=== PATIENT | male | born 1960 | race Caucasian/White ===

== ENCOUNTER 2023-07-11 14:46 | Outpatient (AMB) | payer BC, SELFPAY ==
--- NOTE | 2023-07-11 14:49 | A.OFFPC_ITS ---
Vital Signs 07/11/23 14:50 Height 5 ft 7 in Weight 178 lb 8 oz BMI 28.0 BP 140/70 H Blood Pressure Location Lt brachial Position Sitting Pulse 97 Pulse Source Pulse Oximeter Pulse Oximetry (%) 97 Oxygen Delivery Method Room Air Intake Visit Reasons: follow up HTN Allergies No Known Allergies Allergy (Verified 07/11/23 17:46) Medication List - Last Reconciled 07/11/23 by TROY NavarroP- amlodipine 5 mg PO DAILY atorvastatin 10 mg PO BEDTIME losartan 50 mg PO DAILY 90 days sildenafil 100 mg PO DAILY PRN 14 days Tobacco use date assessed: 07/11/23 Dental Screening Dental Screen Date: 07/11/23 Did you have a dental visit in the last 12 months?: Yes Did you have a dental problem in the last 6 months where you did not have access to dental care?: No Was dental information given to patient?: Patient has dentist HPI follow up HTN HPI Details HTN: Blood pressure is managed with amlodipine 5mg and losartan 50mg. Encouraged pt to monitor his blood pressure at home. Denies chest pain, shortness of breath, headache, dizziness, and blurred vision. Pt reports being under a lot of stress. His boss recently and he has taken on a larger workload. Denies any SI and HI. Encouraged pt to have his labs drawn. [facility] Social History Housing: [facility] Patient Tobacco Use Status: Former Tobacco user Quit Date: quit 5 years ago e-Cigarette/Vaping Use: Never Used Second Hand Smoke Exposure: No service: No Current occupational status: employed Current occupation: [employer] Current occupational exposures/hazards: Yes Cognitive needs: No Hearing needs: No Vision needs: No Questionnaire Thrive Questionnaire Date Thrive assessed: 09/06/22 ARTEMIO-7 AMB Questionnaire ARTEMIO-7 Date ARTEMIO - 7 assessed: 09/06/22 Source: Developed by Drs. Jayjay Zambrano, Gela Choudhury, Stephan Pope and colleagues, with an educational deniz from [employer]. Review of Systems Const Denies chills and Denies fever(s) Eyes Denies blurry vision ENT Denies vertigo, Denies dizziness and Denies sore throat Card Denies chest pain at rest, Denies chest pain with activity, Denies diaphoresis, Denies dyspnea and Denies dyspnea on exertion Resp Denies cough, Denies dyspnea, Denies dyspnea on exertion and Denies wheezing GI Denies abdominal pain, Denies melena, Denies hematochezia, Denies constipation, Denies diarrhea and Denies loose stools Denies hematuria Musc Denies numbness and Denies tingling Skin/Breast Denies lesions Neuro Denies vertigo, Denies dizziness, Denies numbness and Denies tingling Psych Denies anxiety, Denies depression, Denies homicidal ideation, Denies suicidal ideation and Denies other (substance abuse) Aller/Immun Denies wheezing Physical exam (Primary Care) Vital Signs: Last Vital Signs Pulse 97 07/11/23 14:50 BP 140/70 H 07/11/23 14:50 Pulse Ox 97 07/11/23 14:50 Oxygen Delivery Method Room Air 07/11/23 14:50 BMI result Body Mass Index 28.0 Tobacco/Smoking Status: Tobacco use Status Tobacco use date assessed 07/11/23 07/11/23 14:56 Patient Tobacco Use Status Former Tobacco user 07/11/23 14:51 e-Cigarette/Vaping Use Never Used 07/11/23 14:51 Thrive Assessment: Date of Thrive Assessment Date Thrive assessed 09/06/22 07/11/23 14:51 Const General: cooperative Resp Effort & Inspection: normal respiratory effort Auscultation: clear to auscultation bilaterally Cardio Rate: regular rate Rhythm: regular rhythm Heart sounds: S1 normal heart sound present, S2 normal heart sound present and no murmurs Extrem Right lower extremity: no edema Left lower extremity: no edema Assessment and Plan Assessment & Plan (1) Skin lesion: Code(s): L98.9 - Disorder of the skin and subcutaneous tissue, unspecified Plan: Referred to derm (2) Skin cancer: Code(s): C44.90 - Unspecified malignant neoplasm of skin, unspecified Plan: Referred to derm (3) Screening for colon cancer: Code(s): Z12.11 - Encounter for screening for malignant neoplasm of colon (4) HTN (hypertension): Code(s): I10 - Essential (primary) hypertension Plan: on medication Plan The patient agreed to the use of a internist medical doctor md for this encounter. Scribed for LISA Mosquera by Heike Larkin internist medical doctor md, on 07/11/2023 at 15:00 EST Orders: Referrals Gastroenterology Referral Z12.11 - Encounter for screening for malignant neoplasm of colon Dermatology Referral C44.90 - Unspecified malignant neoplasm of skin, unspecified, L98.9 - Disorder of the skin and subcutaneous tissue, unspecified Coding Level of Care Code Est Pt Prev Care 40-64y(05423) Diagnoses Skin lesion L98.9 Skin cancer C44.90 Screening for colon cancer Z12.11 HTN (hypertension) I10
[2023-07-11 14:50] VITALS: BP 140/70; PULSE 97; O2SAT 97; BMI 28.0
== END 2023-07-11 15:29 | disposition home or self-care (01) ==
PROVIDERS: PCP Nurse Practitioner Family; Visit Provider Nurse Practitioner Family
DX: I10 Essential (primary) hypertension (principal); L98.9 Disorder of the skin and subcutaneous tissue, unspecified; C44.90 Unspecified malignant neoplasm of skin, unspecified; Z12.11 Encounter for screening for malignant neoplasm of colon
CPT/HCPCS: 99213

== ENCOUNTER 2024-01-10 10:54 | Outpatient (AMB) | payer BC, SELFPAY ==
--- NOTE | 2024-01-10 10:57 | A.OFFPC_ITS ---
Vital Signs 01/10/24 10:59 Height 5 ft 7 in Weight 184 lb BMI 28.8 BP 140/66 H Blood Pressure Location Lt brachial Position Sitting Pulse 87 Pulse Source Pulse Oximeter Pulse Oximetry (%) 96 Oxygen Delivery Method Room Air Intake Visit Reasons: Annual PE Intake Note: pt is here for annual exam, due to colonoscopy Multigrapher Required: No Allergies No Known Allergies Allergy (Verified 01/10/24 12:33) Medication List - Last Reconciled 01/10/24 by LISA Navarro amlodipine 5 mg PO DAILY atorvastatin 10 mg PO BEDTIME losartan 50 mg PO DAILY 90 days metoprolol succinate ER 25 mg PO DAILY sildenafil 100 mg PO DAILY PRN 14 days Tobacco use date assessed: 01/10/24 Dental Screening Dental Screen Date: 01/10/24 Did you have a dental visit in the last 12 months?: Yes Did you have a dental problem in the last 6 months where you did not have access to dental care?: No Was dental information given to patient?: Patient has dentist HPI Annual PE HPI Details Pt is here for a PE. Will order labs. Due for colon screen. Pt reports that this needs to be done in the winter, will contact GI about this. Due for PSA, will order. Denies dribbling with urination, weak stream, and frequent nocturia. HTN: Pt's blood pressure is elevated, managed with amlodipine 5mg and losartan 50mg. Will add metoprolol 25mg (starting with half a tab, increasing to full tab if BP remains elevated). Denies chest pain, shortness of breath, headache, dizziness, and blurred vision. Pt smoked up to 2 packs per day from age 14 until approximately 5 years ago. Will refer for low-dose CT. [facility] Surgical History S/P skin and subcutaneous tissue surgery Social History Housing: Condominium Patient Tobacco Use Status: Former Tobacco user Quit Date: quit 5 years ago e-Cigarette/Vaping Use: Never Used Second Hand Smoke Exposure: No service: No Current occupational status: employed Current occupation: [employer] Current occupational exposures/hazards: Yes Cognitive needs: No Hearing needs: No Vision needs: No Questionnaire PHQ-9 Over the last 2 weeks, how often have you been bothered by any of the following problems? 1. Little interest or pleasure in doing things: not at all 2. Feeling down, depressed, or hopeless: not at all 3. Trouble falling or staying asleep, or sleeping too much: not at all 4. Feeling tired or having little energy: not at all 5. Poor appetite or overeating: not at all 6. Feeling bad about yourself - or that you are a failure or have let yourself or your family down: not at all 7. Trouble concentrating on things, such as reading the newspaper or watching television: not at all 8. Moving or speaking so slowly that other people could have noticed. Or the opposite - being so fidgety or restless that you have been moving around a lot more than usual: not at all 9. Thoughts that you would be better off or of hurting yourself in some way: not at all Total score: 0 Depression Screening Interpretation: Negative Depression Screening Done: Yes 99017 - PHQ-9 Billing: Yes Source: Developed by Drs. Jayjay Zambrano, Gela Choudhury, Stephan Pope and colleagues, with an educational deniz from [employer]. Thrive Questionnaire Date Thrive assessed: 01/10/24 I am a: Patient What is your living situation today?: I have a steady place to live Within the past 12 months, did the food you bought not last and you didn't have the money to get more?: Never true Within the past 12 months, did you worry whether your food would run out before you got money to buy more?: Never true Do you have trouble paying for medicines?: No Do you have trouble getting transportation to medical appointments?: No Do you have trouble paying your heating and electricity bill?: No Do you have trouble taking care of your child, family member or friend?: No Do you have trouble with day-to-day activities such as bathing, preparing meals, shopping, managing finances, etc.?: No Are you currently unemployed and looking for a job?: No Are you interested in more education?: No Please select the resources that you would like help with: None Currently or been in a relationship where the following occur: no concerns reported THRIVE Score: 0 AUDIT C Alcohol Use Questionnaire (AUDIT-C) 1. How often do you have a drink containing alcohol?: 2-3 times a week 2. How many drinks containing alcohol do you have on a typical day when you are drinking?: 1 or 2 3. How often do you have six or more drinks on one occasion?: Never Total Score: 3 Score Reviewed/Action Taken: Yes ARTEMIO-7 AMB Questionnaire ARTEMIO-7 Date ARTEMIO - 7 assessed: 01/10/24 Feeling nervous, anxious, or on edge: 0 = Not at all Not being able to stop or control worryin = Not at all Worrying too much about different things: 0 = Not at all Trouble relaxin = Not at all Being so restless that it is hard to sit still: 0 = Not at all Becoming easily annoyed or irritable: 0 = Not at all Feeling afraid as if something awful might happen: 0 = Not at all Total ARTEMIO-7 score (0-4 normal; 5-9 mild; 10-14 moderate; 15-21 severe): 0 Source: Developed by Drs. Jayjay Zambrano, Gela Choudhury, Stephan Pope and colleagues, with an educational deniz from [employer]. ARTEMIO-7 Assessment Billing ARTEMIO-7 Assessment Tool: ARTEMIO-7 Assessment 67787 Review of Systems Const Denies chills and Denies fever(s) Eyes Denies blurry vision ENT Denies vertigo, Denies dizziness and Denies sore throat Card Denies chest pain at rest, Denies chest pain with activity, Denies diaphoresis, Denies dyspnea and Denies dyspnea on exertion Resp Denies cough, Denies dyspnea, Denies dyspnea on exertion and Denies wheezing GI Denies abdominal pain, Denies melena, Denies hematochezia, Denies constipation, Denies diarrhea and Denies loose stools Denies hematuria Musc Denies numbness and Denies tingling Skin/Breast Denies lesions Neuro Denies vertigo, Denies dizziness, Denies numbness and Denies tingling Psych Denies anxiety, Denies depression, Denies homicidal ideation, Denies suicidal ideation and Denies other (substance abuse) Aller/Immun Denies wheezing Physical exam (Primary Care) Vital Signs: Last Vital Signs Pulse 87 01/10/24 10:59 BP 140/66 H 01/10/24 10:59 Pulse Ox 96 01/10/24 10:59 Oxygen Delivery Method Room Air 01/10/24 10:59 BMI result Body Mass Index 28.8 Tobacco/Smoking Status: Tobacco use Status Tobacco use date assessed 01/10/24 01/10/24 11:04 Patient Tobacco Use Status Former Tobacco user 01/10/24 11:04 e-Cigarette/Vaping Use Never Used 01/10/24 11:04 PHQ-9: PHQ-9 Score PHQ-9: Total score 0 01/10/24 11:12 Depression Screening Interpretation: Negative Thrive Assessment: Date of Thrive Assessment Date Thrive assessed 01/10/24 01/10/24 11:12 Currently or been in a relationship where the following occur: no concerns reported Const General: cooperative Nutritional Appearance: well nourished Orientation/consciousness: patient oriented x3 HENMT Head: Yes normal to inspection, Yes normocephalic and Yes atraumatic Ears: TM's normal bilaterally Eyes General: appearance normal, both eyes and all related structures Alignment and Position: alignment normal and position normal Neck Neck: Yes normal visual inspection and Yes no lymphadenopathy Thyroid: Thyroid normal Resp Effort & Inspection: normal respiratory effort Auscultation: clear to auscultation bilaterally Cardio Rate: regular rate Rhythm: regular rhythm Heart sounds: S1 normal heart sound present, S2 normal heart sound present and no murmurs GI Palpation (GI): Soft to palpation and nontender Auscultation: normal bowel sounds Male General Exam: Yes normal external exam Penis: normal penis Scrotum: scrotum normal, testes descended bilaterally and no inguinal hernias Testes: no testicular mass Skin Rashes: no rashes Neuro General: patient oriented x3, moves all extremities, no focal motor deficits and deep tendon reflexes 2+ bilaterally Romberg Test: Negative Psych Appearance: grossly normal Mental Status: mental status grossly normal Speech and movement: Normal speech and movement present Affect: normal affect Attitude: cooperative Thought process: Normal thought process present Thought content: Normal thought content present Insight: Good insight present (Psych) Judgement: Good judgement present (Psych) Assessment and Plan Assessment & Plan (1) HTN (hypertension): Code(s): I10 - Essential (primary) hypertension Plan: Adding metoprolol 25mg, start with half a tab and increase to full tab if BP remains elevated (2) Physical exam: Code(s): Z00.00 - Encounter for general adult medical examination without abnormal findings Plan: Labs ordered (3) Smoker: Code(s): F17.200 - Nicotine dependence, unspecified, uncomplicated Plan: quit smoking approx 5 years ago, Referred for low-dose CT (4) Screening PSA (prostate specific antigen): Code(s): Z12.5 - Encounter for screening for malignant neoplasm of prostate Plan: PSA ordered Plan The patient agreed to the use of a medical front desk specialist for this encounter. Scribed for DAVID Mosquera-LIVIA by Heike Larkin medical front desk specialist, on 01/10/2024 at 11:30 EST. Orders: Orders Complete Blood Count Auto Diff Today I10 - Essential (primary) hypertension, Z00.00 - Encounter for general adult medical examination without abnormal findings TSH reflex Free T4 Today I10 - Essential (primary) hypertension, Z00.00 - Encounter for general adult medical examination without abnormal findings Lipid Panel Today I10 - Essential (primary) hypertension, Z00.00 - Encounter for general adult medical examination without abnormal findings Comprehensive [place]. Panel Fast Today I10 - Essential (primary) hypertension, Z00.00 - Encounter for general adult medical examination without abnormal findings UA CC w/rflx Micro + Cult Today I10 - Essential (primary) hypertension, Z00.00 - Encounter for general adult medical examination without abnormal findings Prostate Specific Antigen Scr Today Z12.5 - Encounter for screening for malignant neoplasm of prostate Referrals Thoracic Surgery Referral F17.200 - Nicotine dependence, unspecified, uncomplicated Medications: New metoprolol succinate ER 25 mg PO DAILY 90 tabs 0RF Coding Level of Care Code Est Pt Prev Care 40-64y(96467) Diagnoses HTN (hypertension) I10 Physical exam Z00.00 Smoker F17.200 Screening PSA (prostate specific antigen) Z12.5 Additional Codes ARTEMIO-7 Assessment Billing - ARTEMIO-7 Assessment Tool: ARTEMIO-7 Assessment [id number] ([id number])
[2024-01-10 10:59] VITALS: BP 140/66; PULSE 87; O2SAT 96; BMI 28.8
== END 2024-01-10 12:15 | disposition home or self-care (01) ==
PROVIDERS: PCP Nurse Practitioner Family; Visit Provider Nurse Practitioner Family
DX: Z00.00 Encounter for general adult medical examination without abnormal findings (principal); I10 Essential (primary) hypertension; Z87.891 Personal history of nicotine dependence; Z12.5 Encounter for screening for malignant neoplasm of prostate
CPT/HCPCS: 99396

== ENCOUNTER 2024-05-13 14:16 | Outpatient (AMB) | payer BC, SELFPAY ==
--- NOTE | 2024-05-13 14:17 | A.OFFPC_ITS ---
Vital Signs 05/13/24 14:19 05/13/24 17:22 Height 5 ft 7 in Weight 180 lb BMI 28.2 BP 140/98 H 134/75 Blood Pressure Location Rt brachial Position Sitting Pulse 80 Pulse Source Pulse Oximeter Pulse Oximetry (%) 98 Oxygen Delivery Method Room Air Intake Visit Reasons: 4M F/U Intake Note: Patient here for HTN f/u Allergies No Known Allergies Allergy (Verified 05/13/24 14:20) Tobacco use date assessed: 01/10/24 Fall risk assessment: No Falls in past year Last assessed Fall Risk: 05/13/24 Dental Screening Dental Screen Date: 01/10/24 HPI 4M F/U HPI Details HTN: Blood pressure is managed with amlodipine 5mg, losartan 50mg, and metoprolol 25mg. Will have pt monitor his BP at home. Denies chest pain, shortness of breath, headache, dizziness, and blurred vision. Pt smoked up to 2 packs a day since age 14, quit approximately 6 years ago. Will refer for low- dose CT. [facility] Surgical History S/P skin and subcutaneous tissue surgery Social History Housing: Condominium Patient Tobacco Use Status: Former Tobacco user e-Cigarette/Vaping Use: Never Used Second Hand Smoke Exposure: No service: No Current occupational status: employed Current occupation: [employer] Current occupational exposures/hazards: Yes Cognitive needs: No Hearing needs: No Vision needs: No Questionnaire PHQ-9 Over the last 2 weeks, how often have you been bothered by any of the following problems? 1. Little interest or pleasure in doing things: not at all 2. Feeling down, depressed, or hopeless: not at all 3. Trouble falling or staying asleep, or sleeping too much: not at all 4. Feeling tired or having little energy: not at all 5. Poor appetite or overeating: not at all 6. Feeling bad about yourself - or that you are a failure or have let yourself or your family down: not at all 7. Trouble concentrating on things, such as reading the newspaper or watching television: not at all 8. Moving or speaking so slowly that other people could have noticed. Or the opposite - being so fidgety or restless that you have been moving around a lot more than usual: not at all 9. Thoughts that you would be better off or of hurting yourself in some way: not at all Total score: 0 Depression Screening Interpretation: Negative Depression Screening Done: Yes 50803 - PHQ-9 Billing: Yes Source: Developed by Drs. Jayjay Zambrano, Gela Choudhury, Stephan Pope and colleagues, with an educational deniz from [employer]. Thrive Questionnaire Date Thrive assessed: 05/13/24 I am a: Patient What is your living situation today?: I have a steady place to live Within the past 12 months, did the food you bought not last and you didn't have the money to get more?: Never true Within the past 12 months, did you worry whether your food would run out before you got money to buy more?: Never true Do you have trouble paying for medicines?: No Do you have trouble getting transportation to medical appointments?: No Do you have trouble paying your heating and electricity bill?: No Do you have trouble taking care of your child, family member or friend?: No Do you have trouble with day-to-day activities such as bathing, preparing meals, shopping, managing finances, etc.?: No Are you currently unemployed and looking for a job?: Yes Are you interested in more education?: No Please select the resources that you would like help with: Housing/Skilled Nursing Currently or been in a relationship where the following occur: No concerns reported THRIVE Score: 0 AUDIT C Alcohol Use Questionnaire (AUDIT-C) 1. How often do you have a drink containing alcohol?: 2-3 times a week 2. How many drinks containing alcohol do you have on a typical day when you are drinking?: 1 or 2 3. How often do you have six or more drinks on one occasion?: Never Total Score: 3 ARTEMIO-7 AMB Questionnaire ARTEMIO-7 Date ARTEMIO - 7 assessed: 05/13/24 Feeling nervous, anxious, or on edge: 0 = Not at all Not being able to stop or control worryin = Not at all Worrying too much about different things: 0 = Not at all Trouble relaxin = Not at all Being so restless that it is hard to sit still: 0 = Not at all Becoming easily annoyed or irritable: 0 = Not at all Feeling afraid as if something awful might happen: 0 = Not at all Total ARTEMIO-7 score (0-4 normal; 5-9 mild; 10-14 moderate; 15-21 severe): 0 Source: Developed by Drs. Jayjay Zambrano, Gela Choudhury, Stephan Pope and colleagues, with an educational deniz from [employer]. ARTEMIO-7 Assessment Billing ARTEMIO-7 Assessment Tool: ARTEMIO-7 Assessment 53905 Review of Systems Const Reports as per HPI Physical exam (Primary Care) Vital Signs: Last Vital Signs Pulse 80 05/13/24 14:19 BP 134/75 05/13/24 17:22 Pulse Ox 98 05/13/24 14:19 Oxygen Delivery Method Room Air 05/13/24 14:19 BMI result Body Mass Index 28.2 Tobacco/Smoking Status: Tobacco use Status Tobacco use date assessed 01/10/24 05/13/24 14:19 Patient Tobacco Use Status Former Tobacco user 05/13/24 14:19 e-Cigarette/Vaping Use Never Used 05/13/24 14:19 PHQ-9: PHQ-9 Score PHQ-9: Total score 0 05/13/24 17:24 Depression Screening Interpretation: Negative Thrive Assessment: Date of Thrive Assessment Date Thrive assessed 05/13/24 05/13/24 14:22 Currently or been in a relationship where the following occur: No concerns reported Const General: cooperative Orientation/consciousness: patient oriented x3 Resp Effort & Inspection: normal respiratory effort Auscultation: clear to auscultation bilaterally Cardio Rate: regular rate Rhythm: regular rhythm Heart sounds: S1 normal heart sound present and S2 normal heart sound present Neuro General: patient oriented x3 Extrem Right lower extremity: no edema Left lower extremity: no edema Psych Appearance: grossly normal Mental Status: mental status grossly normal Speech and movement: Normal speech and movement present Affect: normal affect Attitude: cooperative Thought process: Normal thought process present Thought content: Normal thought content present Insight: Good insight present (Psych) Judgement: Good judgement present (Psych) Assessment and Plan Assessment & Plan (1) Smoker: Code(s): F17.200 - Nicotine dependence, unspecified, uncomplicated Plan: referred to LDCT program (2) HTN (hypertension): Code(s): I10 - Essential (primary) hypertension Plan: pt reports he will start taking his BP at home, recording values Plan The patient agreed to the use of a diagnostic medical sonographer for this encounter. Scribed for LISA Mosquera by Heike Larkin diagnostic medical sonographer, on 05/13/2024 at 14:40 EST. Orders: Referrals Lung Cancer Screening Referral F17.200 - Nicotine dependence, unspecified, uncomplicated Coding Level of Care Code Est Pt Level 3 (91405) Diagnoses Smoker F17.200 HTN (hypertension) I10 Additional Codes ARTEMIO-7 Assessment Billing - ARTEMIO-7 Assessment Tool: ARTEMIO-7 Assessment 61598 ([id number])
[2024-05-13 14:19] VITALS: BP 140/98; PULSE 80; O2SAT 98; BMI 28.2
[2024-05-13 17:22] VITALS: BP 134/75
== END 2024-05-13 16:41 | disposition home or self-care (01) ==
PROVIDERS: PCP Nurse Practitioner Family; Visit Provider Nurse Practitioner Family
DX: I10 Essential (primary) hypertension (principal); Z87.891 Personal history of nicotine dependence
CPT/HCPCS: 99213

== ENCOUNTER 2024-10-25 10:22 | Outpatient (AMB) | payer BC, SELFPAY ==
--- NOTE | 2024-10-25 08:02 | MHC.OFFVIS ---
Intake Visit Reasons: Former Smoker Allergies No Known Allergies Allergy (Verified 05/13/24 14:20) HPI HPI Former Smoker: Details: Initial visit for this 64yo former smoker with a 75PYH. Patient started smoking at age 14 for 42 years at 2ppd. He quit smoking 8 years ago in 2017. . Denies marijuana use. Denies second hand smoke exposure. Reports exposure to diesel fumes . Denies known family history of lung cancer. Reports personal history of Skin cancer. BCC in [address] in last year. . Denies recent travel outside the [place]. Denies recent respiratory illness or recent hospitalization for respiratory issues. Denies testing positive for COVID. Admits receiving COVID Vaccine. . Denies fever, chills, new/worsening cough, hemoptysis, hoarseness or dysphagia. Denies significant chest pain, significant dyspnea or unintentional weight loss. Patient Lung Cancer Screening Questionnaire reviewed with patient by provider. . Shared Decision Making Completed. Patient meets criteria. Discussed in detail with patient, the risk vs benefit of LDCT screening. Patient consents to proceed with scan. Discussed and encouraged continued smoking cessation. [facility] Medical History (Updated 10/25/24 @ 10:45 by Leti Riggs PA-C) History of basal cell carcinoma (BCC) HTN (hypertension) Personal history of nicotine dependence Surgical History (Updated 10/25/24 @ 10:43 by Leti Riggs PA-C) History of tonsillectomy History of basal cell carcinoma excision Social History (Updated 10/25/24 @ 10:45 by Leti Riggs PA-C) Housing: Condominium Patient Tobacco Use Status: Former Tobacco user Years Smoked: (onset 14yo, 2ppd x 42yrs, 75PYH - quit 2017) e-Cigarette/Vaping Use: Never Used Second Hand Smoke Exposure: No service: No Current occupational status: employed Current occupation: [employer] Current occupational exposures/hazards: Yes Cognitive needs: No Hearing needs: No Vision needs: No Assessment & Plan Assessment & Plan (1) Personal history of nicotine dependence: Comment: (onset 14yo, 2ppd x 42yrs, 75PYH - quit 2017) Code(s): Z87.891 - Personal history of nicotine dependence Category: Medical Plan: - SDM visit completed today in office. - Patient meets criteria for LDCT for lung cancer screening purposes and is asymptomatic. - Smoking cessation counseling offered. Patients can always call [phone]. - Will arrange for a LDCT scan of the chest for screening purposes at [facility]. - Risks, benefits, and alternatives were discussed in detail and the patient agrees to proceed. - Risks discussed include but are not limited to: radiation exposure, anxiety during testing and while awaiting results, false negatives, false positives and possibility of additional intervention such as further imaging or surgical procedures for benign disease. - Benefits are obviously detection of lung cancer at an early stage which can lead to improved outcomes. - Discussed the importance of screening program compliance with adherence to yearly LDCT scan as scheduled - or sooner interval scans for personalized screening regimen. - Discussed follow up plan. Our office will send a letter discussing results and if needed set up phone call and office visit based on CT findings. - Patient educated on results categorization and the management decisions for suspicious findings potentially found on the screening LDCT scan. Any patient with a Lung RADS score of 3 or 4 will be reviewed by a multidisciplinary team at [facility] to form a plan of action in regards to scan findings. - If further work up is warranted for a suspicious lung finding this will be followed by the Lung Cancer Screening program in conjunction with the Thoracic Surgery Department at [facility]. - A copy of the office note and LDCT will be sent to the patient's PCP - as well as documentation on any associated further plans of care. - Incidental findings on LDCT are the PCP's responsibility. These findings are indicated with an S finding on the LDCT Assessment. A note discussing the findings will be sent to the PCP who is then responsible for further management. - All questions answered.? Coding Level of Care Code Lung Cancer Screening G0296 Diagnoses Personal history of nicotine dependence Z87.891
== END 2024-10-25 11:07 | disposition home or self-care (01) ==
PROVIDERS: PCP Nurse Practitioner Family; Visit Provider Physician Assistant Medical
DX: Z87.891 Personal history of nicotine dependence (principal)
CPT/HCPCS: G0296

== ENCOUNTER 2024-10-25 10:51 | Outpatient (REF) | payer BC, SELFPAY ==
--- NOTE | ~2024-10-25 | CT_ITS ---
CLINICAL HISTORY: Z87.891 - Personal history of nicotine dependence CT lung cancer screening (LDCT) Comparison: None Technique: Axial CT images of the chest using low-dose technique. Referring provider counseled the patient on shared decision-making for LDCT screening. Additional counseling was provided on smoking cessation. Effective radiation dose total: DLP 55.4 mGycm, CTDIvol 1.6 mGy. Findings: Mild biapical pleural thickening. Small (up to 17 mm) ground-glass opacity in the apical portion of the right upper lobe may at least partially be due to scarring. Two right lung nodules measuring up to 4 mm. Coronary artery calcifications: Moderate Moderately atrophied pancreas. Impression: LungRADS 2 - Benign Appearance: Continue annual screening with low dose Chest CT in 12 months. ##L2# Category 1: Normal; continue annual screening Category 2: Benign appearance or behavior, continue annual screening Category 3: Probably benign, [address] recommended Category 4A: Suspicious, [address] recommended; may consider PET/CT Category 4B: Suspicious, Additional diagnostics and/or tissue sampling recommended Category 4X: Suspicious, Additional diagnostics and/or tissue sampling recommended Category 0: Recalls (incomplete screen due to Incomplete coverage, Noise, Respiratory motion, Expiration, Obscured by acute abnormality) This document has been electronically signed by: Eusebia Ag MD on 10/29/2024 06:48:00
== END 2024-10-25 10:52 | disposition home or self-care (01) ==
LOC: HO.CT 10:51
PROVIDERS: PCP Nurse Practitioner Family; Visit Provider Physician Assistant Medical
DX: Z12.2 Encounter for screening for malignant neoplasm of respiratory organs (principal); Z87.891 Personal history of nicotine dependence
CPT/HCPCS: 71271

== ENCOUNTER → 2024-10-25 10:53 | Outpatient (BNV) | payer BC, SELFPAY | PROVIDERS: PCP Nurse Practitioner Family; Visit Provider Radiology Diagnostic Radiology | DX: R91.1 Solitary pulmonary nodule (principal) | CPT/HCPCS: 71271 ==

== ENCOUNTER 2025-02-18 15:58 | Outpatient (AMB) | payer BC, SELFPAY ==
[2025-02-18 16:00] VITALS: BP 126/70; PULSE 84; TEMP 37.1; O2SAT 96; BMI 28.0
--- NOTE | 2025-02-18 16:00 | MHC.PC.OV ---
Vital Signs 02/18/25 16:00 Height 5 ft 7 in Weight 179 lb BMI 28.0 BP 126/70 Blood Pressure Location Lt brachial Position Sitting Pulse 84 Pulse Source Pulse Oximeter Temp 98.7 F Temp Source Oral Pulse Oximetry (%) 96 Oxygen Delivery Method Room Air Intake Visit Reasons: Annual PE Intake Note: Pt is here today for PE. Allergies No Known Allergies Allergy (Verified 02/18/25 16:00) Medication List - Last Reconciled 02/18/25 by DAVID Navarro- amlodipine 5 mg PO DAILY atorvastatin 10 mg PO BEDTIME losartan 50 mg PO DAILY 90 days metoprolol succinate ER 25 mg PO DAILY sildenafil 100 mg PO DAILY PRN 14 days Tobacco use date assessed: 02/18/25 Fall risk assessment: No Falls in past year Last assessed Fall Risk: 02/18/25 Dental Screening Dental Screen Date: 02/18/25 Did you have a dental visit in the last 12 months?: Yes Did you have a dental problem in the last 6 months where you did not have access to dental care?: No Was dental information given to patient?: Patient has dentist HPI Annual PE HPI Details History of Present Illness The patient is a 65-year-old male presenting for a wellness physical examination. He denies any symptoms such as chest pain, shortness of breath, fevers, chills, abdominal pain, constipation, diarrhea, or blood in his stool. He also denies suicidal or homicidal thoughts. His blood pressure remains stable, and he reports that he is doing well overall. The patient has a history of basal cell carcinoma and sees a licensed nuclear control room operator regularly for this condition. He possesses a Cologuard screening and has expressed an understanding of completing it soon. Despite declining a digital rectal exam at this visit, he has agreed to a PSA screening. Pt is part of our low dose CT program Health Maintenance - Encouraged to complete Cologuard home screening test - Regular dermatology follow-ups for history of basal cell carcinoma - Discussed PSA testing as a part of prostate health assessment -declined vaccinations Social History Review of Systems - Cardiovascular: Denies chest pain and stable blood pressure - Respiratory: Denies shortness of breath - Constitutional: Denies fevers and chills - Gastrointestinal: Denies abdominal pain, constipation, diarrhea, and blood in stools - Psychiatric: Denies suicidal and homicidal ideation Physical Exam General: Cooperative, healthy appearing, comfortable, no acute distress and well developed Orientation: Patient oriented x3 Limitations: No limitations Head: Normal to inspection Ears: Hearing grossly normal bilaterally Nose: Normal external nose present Face and sinus: Normal facial exam Eyes: Appearance normal, both eyes and all related structures Neck: Normal visual inspection and Yes full ROM Respiratory: Normal respiratory effort and able to speak in complete sentences. Clear to auscultation bilaterally Cardiovascular: Regular rate and rhythm. Normal S1 and S2 GI: Normal to inspection. Soft to palpation and nontender Skin: No rashes or lesions noted. Neuro: Patient oriented x3 Extremities: Normal to inspection Results Plan The patient's wellness examination focused on routine health maintenance. He regularly consults with a licensed nuclear control room operator for basal cell carcinoma. Completing the home Cologuard test was encouraged. A PSA test was agreed upon for prostate health, in lieu of a digital rectal exam which the patient declined. A referral to a new licensed nuclear control room operator will be arranged for ongoing skin health monitoring. Discussion Notes I discussed with the patient the importance of regular health screenings, particularly in light of his history of basal cell carcinoma. The benefits and necessity of completing the Cologuard test were emphasized, and the patient confirmed his understanding and willingness to comply soon. The option of a digital rectal exam was offered for prostate health evaluation, but the patient opted for a PSA test instead. I will facilitate a new dermatology referral to ensure continuity of care. Patient Instructions - Complete the Cologuard home test soon - Undergo PSA blood test as scheduled - Follow up with licensed nuclear control room operator as per referral - Monitor for any new or unusual symptoms and report immediately [facility] Medical History History of basal cell carcinoma (BCC) HTN (hypertension) Personal history of nicotine dependence Surgical History History of tonsillectomy History of basal cell carcinoma excision Social History Housing: [facility] Patient Tobacco Use Status: Former Tobacco user Years Smoked: (onset 14yo, 2ppd x 42yrs, 75PYH - quit 2017) e-Cigarette/Vaping Use: Never Used Second Hand Smoke Exposure: No service: No Current occupational status: employed Current occupation: [employer] Current occupational exposures/hazards: Yes Cognitive needs: No Hearing needs: No Vision needs: No Questionnaire PHQ-9 Over the last 2 weeks, how often have you been bothered by any of the following problems? 1. Little interest or pleasure in doing things: not at all 2. Feeling down, depressed, or hopeless: not at all 3. Trouble falling or staying asleep, or sleeping too much: not at all 4. Feeling tired or having little energy: not at all 5. Poor appetite or overeating: not at all 6. Feeling bad about yourself - or that you are a failure or have let yourself or your family down: not at all 7. Trouble concentrating on things, such as reading the newspaper or watching television: not at all 8. Moving or speaking so slowly that other people could have noticed. Or the opposite - being so fidgety or restless that you have been moving around a lot more than usual: not at all 9. Thoughts that you would be better off or of hurting yourself in some way: not at all Total score: 0 Depression Screening Interpretation: Negative Depression Screening Done: Yes 72247 - PHQ-9 Billing: Yes Source: Developed by Drs. Jayjay Zambrano, Gela Choudhury, Stephan Pope and colleagues, with an educational deniz from [employer]. Thrive Questionnaire Date Thrive assessed: 02/18/25 I am a: Patient What is your living situation today?: I have a steady place to live Within the past 12 months, did the food you bought not last and you didn't have the money to get more?: Never true Within the past 12 months, did you worry whether your food would run out before you got money to buy more?: Never true Do you have trouble paying for medicines?: No Do you have trouble getting transportation to medical appointments?: No Do you have trouble paying your heating and electricity bill?: No Do you have trouble taking care of your child, family member or friend?: No Do you have trouble with day-to-day activities such as bathing, preparing meals, shopping, managing finances, etc.?: No Are you currently unemployed and looking for a job?: No Are you interested in more education?: No Please select the resources that you would like help with: None Currently or been in a relationship where the following occur: No concerns reported THRIVE Score: 0 AUDIT C Alcohol Use Questionnaire (AUDIT-C) 1. How often do you have a drink containing alcohol?: 2-3 times a week 2. How many drinks containing alcohol do you have on a typical day when you are drinking?: 1 or 2 3. How often do you have six or more drinks on one occasion?: Never Total Score: 3 ARTEMIO-7 AMB Questionnaire ARTEMIO-7 Date ARTEMIO - 7 assessed: 02/18/25 Feeling nervous, anxious, or on edge: 0 = Not at all Not being able to stop or control worryin = Not at all Worrying too much about different things: 0 = Not at all Trouble relaxin = Not at all Being so restless that it is hard to sit still: 0 = Not at all Becoming easily annoyed or irritable: 0 = Not at all Feeling afraid as if something awful might happen: 0 = Not at all Total ARTEMIO-7 score (0-4 normal; 5-9 mild; 10-14 moderate; 15-21 severe): 0 Source: Developed by Drs. Jayjay Zambrano, Gela Choudhury, Stephan Pope and colleagues, with an educational deniz from [employer]. ARTEMIO-7 Assessment Billing ARTEMIO-7 Assessment Tool: ARTEMIO-7 Assessment 65429 Physical exam (Primary Care) Vital Signs: Last Vital Signs Temp 98.7 F 02/18/25 16:00 Pulse 84 02/18/25 16:00 BP 126/70 02/18/25 16:00 Pulse Ox 96 02/18/25 16:00 Oxygen Delivery Method Room Air 02/18/25 16:00 BMI result Body Mass Index 28.0 Tobacco/Smoking Status: Tobacco use Status Tobacco use date assessed 02/18/25 02/18/25 16:06 Patient Tobacco Use Status Former Tobacco user 02/18/25 16:06 e-Cigarette/Vaping Use Never Used 02/18/25 16:06 PHQ-9: PHQ-9 Score PHQ-9: Total score 0 02/18/25 16:06 Depression Screening Interpretation: Negative Thrive Assessment: Date of Thrive Assessment Date Thrive assessed 02/18/25 02/18/25 16:06 Currently or been in a relationship where the following occur: No concerns reported Coding Level of Care Code Est Pt Prev Care 40-64y(77457) Diagnoses Physical exam Z00.00 History of basal cell carcinoma (BCC) Z85.828 Screening PSA (prostate specific antigen) Z12.5 Additional Codes ARTEMIO-7 Assessment Billing - ARTEMIO-7 Assessment Tool: ARTEMIO-7 Assessment 07995 ([id number]) PHQ-9 - 14061 - PHQ-9 Billing: Yes ([id number]) Assessment & Plan Assessment & Plan (1) Physical exam: Code(s): Z00.00 - Encounter for general adult medical examination without abnormal findings Category: Medical (2) History of basal cell carcinoma (BCC): Comment: (excision left nose/face 2017) Code(s): Z85.828 - Personal history of other malignant neoplasm of skin Category: Medical (3) Screening PSA (prostate specific antigen): Code(s): Z12.5 - Encounter for screening for malignant neoplasm of prostate Category: Medical Plan . Orders: Orders TSH reflex Free T4 Today Z00.00 - Encounter for general adult medical examination without abnormal findings Complete Blood Count Auto Diff Today Z00.00 - Encounter for general adult medical examination without abnormal findings Comprehensive [place]. Panel Fast Today Z00.00 - Encounter for general adult medical examination without abnormal findings UA CC w/rflx Micro + Cult Today Z00.00 - Encounter for general adult medical examination without abnormal findings Lipid Panel Today Z00.00 - Encounter for general adult medical examination without abnormal findings Prostate Specific Antigen Scr Today Z12.5 - Encounter for screening for malignant neoplasm of prostate Referrals Dermatology Referral Z85.828 - Personal history of other malignant neoplasm of skin
== END 2025-02-18 16:30 | disposition home or self-care (01) ==
LOC: HO.HMCC 15:58
PROVIDERS: PCP Nurse Practitioner Family; Visit Provider Nurse Practitioner Family
DX: Z00.00 Encounter for general adult medical examination without abnormal findings (principal); Z85.828 Personal history of other malignant neoplasm of skin; Z12.5 Encounter for screening for malignant neoplasm of prostate

== ENCOUNTER → 2025-02-18 15:58 | Outpatient (BNVA) | payer BC, SELFPAY | PROVIDERS: PCP Nurse Practitioner Family; Visit Provider Nurse Practitioner Family | DX: Z00.00 Encounter for general adult medical examination without abnormal findings (principal); Z85.828 Personal history of other malignant neoplasm of skin | CPT/HCPCS: 96127 ==

== ENCOUNTER 2025-08-22 07:01 | Outpatient (REF) | payer BC, SELFPAY ==
[2025-08-22 10:26] LABS: MANUAL DIFF FLAG NO
[2025-08-22 10:31] LABS: Hematocrit 38.0 % (42.0-52.0); Hemoglobin 13.2 g/dl (14.0-18.0); Imm Gran Abs Auto 0.03 X10*3/uL (0.00-0.03); Imm Gran Pct Auto 0.4 % (0.0-0.4); Lymphocytes Absolute Auto 2.3 X10*3/uL (1.2-4.9); Mean Corpuscular HGB Conc 34.7 g/dl (31.0-36.0); Mean Corpuscular Hemoglobin 32.4 pg (27.0-33.0); Mean Corpuscular Volume 93.4 fL (80.0-98.0); NRBC Abs Auto 0.000 X10*3/uL (0.0-0.012); NRBC Pct Auto 0.0 /100WBC (0.0-0.2); Platelet Count 352 X10*3/uL (160-400); Red Blood Count 4.07 X10*6/uL (4.60-5.80); White Blood Count 8.2 X10*3/uL (4.8-10.8)
[2025-08-22 11:08] LABS: Alanine Aminotransferase 19 U/L (0-40); Albumin Level 4.2 g/dL (3.5-5.0); Alkaline Phosphatase 74 U/L (39-117); Anion Gap 14 (12-20); Aspartate Amino Transferase 25 U/L (5-37); Blood Urea Nitrogen 9 mg/dL (9-16); Calcium 9.3 mg/dL (8.4-10.2); Carbon Dioxide 22 mmol/L (22-29); Chloride 100 mmol/L (96-108); Cholesterol 177 mg/dL (<200); Estimated Glomerular Filt Rate > 60; HDL Cholesterol 85 mg/dL (>40); Potassium 4.3 mmol/L (3.3-5.1); Sodium 132 mmol/L (135-145); Total Protein 7.4 g/dL (6.5-8.0); Triglycerides 56 mg/dL (<150)
== END 2025-08-22 07:02 | disposition home or self-care (01) ==
LOC: HO.HMGCLDS 07:01
PROVIDERS: PCP Nurse Practitioner Family; Visit Provider Nurse Practitioner Family
DX: Z00.00 Encounter for general adult medical examination without abnormal findings (principal); Z12.5 Encounter for screening for malignant neoplasm of prostate; Z13.29 Encounter for screening for other suspected endocrine disorder; Z13.6 Encounter for screening for cardiovascular disorders
CPT/HCPCS: 36415; 80053; 80061; 84153; 84443; 85025

== ENCOUNTER 2025-08-27 13:00 | Outpatient (REF) | payer BC, SELFPAY ==
[2025-08-27 16:46] LABS: Appearance Urine Clear; Glucose Urine UA Negative (Negative); PH 6.0 (5.0-9.0); Specific Gravity - Urine 1.015 (1.005-1.025)
== END 2025-08-27 13:01 | disposition home or self-care (01) ==
LOC: HO.HMGCLNP 13:00
PROVIDERS: PCP Nurse Practitioner Family; Visit Provider Nurse Practitioner Family
DX: Z00.00 Encounter for general adult medical examination without abnormal findings (principal)
CPT/HCPCS: 81003

== ENCOUNTER 2025-08-27 13:10 | Outpatient (AMB) | payer BC, SELFPAY ==
[2025-08-27 13:16] VITALS: BP 104/60; PULSE 77; RESP 16; TEMP 37.1; O2SAT 96; BMI 27.9
--- NOTE | 2025-08-27 13:16 | MHC.PC.OV ---
Vital Signs 08/27/25 13:16 Height 5 ft 7 in Weight 178 lb BMI 27.9 BP 104/60 Blood Pressure Location Lt brachial Position Sitting Respiration 16 Pulse 77 Pulse Source Pulse Oximeter Temp 98.8 F Temp Source Oral Pulse Oximetry (%) 96 Oxygen Delivery Method Room Air Intake Visit Reasons: 6m f/u Conservation Educator Required: No Accompanied by: Self / Same As Patient Allergies No Known Allergies Allergy (Verified 08/27/25 13:17) Medication List - Last Reconciled 08/27/25 [facility] amlodipine 5 mg PO DAILY atorvastatin 10 mg PO BEDTIME losartan 50 mg PO DAILY 90 days sildenafil 100 mg PO DAILY PRN 14 days Tobacco use date assessed: 08/27/25 Fall risk assessment: No Falls in past year Last assessed Fall Risk: 08/27/25 Dental Screening Dental Screen Date: 08/27/25 Did you have a dental visit in the last 12 months?: Yes Did you have a dental problem in the last 6 months where you did not have access to dental care?: No Was dental information given to patient?: Patient has dentist HPI 6m f/u HPI Details Chief Complaint The patient presents for a follow-up visit for management of hypertension. History of Present Illness The patient is a 65 year old male presenting for a follow-up visit for hypertension. His blood pressure is reported as stable and occasionally low, and he denies any associated dizziness on rising, chest pain, or shortness of breath. Slight anemia, will recheck labs, denies blood in stool. For health maintenance, he has regular follow-ups with dermatology and undergoes annual low-dose CT scans. He has been advised to undergo colon cancer screening and has expressed a preference for a gastroenterology consultation over a Cologuard test. Social History Health Maintenance A referral will be placed for a consultation with Gastroenterology for colon cancer screening, as per the patient's preference over Cologuard. He will continue with his annual low-dose CT scans and regular dermatology follow-ups. Review of Systems - General: Denies dizziness, especially with getting up or rising. - Cardiovascular: Denies chest pain. - Respiratory: Denies shortness of breath. Physical Exam General: Cooperative, healthy appearing, comfortable, no acute distress and well developed Orientation: Patient oriented x3 Limitations: No limitations Head: Normal to inspection Ears: Hearing grossly normal bilaterally Nose: Normal external nose present Face and sinus: Normal facial exam Eyes: Appearance normal, both eyes and all related structures Neck: Normal visual inspection and Yes full ROM Respiratory: Normal respiratory effort and able to speak in complete sentences. Clear to auscultation bilaterally Cardiovascular: Regular rate and rhythm. Normal S1 and S2 GI: Normal to inspection. Soft to palpation and nontender Neuro: Patient oriented x3 Extremities: Normal to inspection Results - Labs: History of a slight anemia noted. Plan 1. Hypertension The patient's hypertension is stable with blood pressure readings occasionally being slightly low. He is asymptomatic, denying dizziness, chest pain, or shortness of breath. Continue current management without changes. 2. Anemia The patient has a history of slight anemia. A new set of labs will be ordered to further evaluate the anemia. Discussion Notes I discussed the patient's stable hypertension, noting his blood pressure is well-controlled and he is asymptomatic. I will order new labs to re-evaluate his history of slight anemia. We also discussed the importance of colon cancer screening, and he chose to follow up with a handle lathe operator rather than doing a Cologuard test, so I will place that referral. We confirmed he should continue his yearly low-dose CT scans and regular dermatology appointments. Patient Instructions - Your blood pressure is stable and well-controlled. - You will need to have blood work done to check on your past anemia. - We will be placing a referral for you to see a handle lathe operator (a doctor who specializes in the digestive system) for colon cancer screening. - Continue to see your skin doctor (medical assistant secretary) regularly. - Continue with your yearly low-dose CT scans of your chest. [facility] Medical History History of basal cell carcinoma (BCC) HTN (hypertension) Personal history of nicotine dependence Surgical History History of tonsillectomy History of basal cell carcinoma excision Social History [facility]: [facility] Patient Tobacco Use Status: Former Tobacco user Years Smoked: (onset 14yo, 2ppd x 42yrs, 75PYH - quit 2017) e-Cigarette/Vaping Use: Never Used Second Hand Smoke Exposure: No service: No Current occupational status: employed Current occupation: [employer] Current occupational exposures/hazards: Yes Cognitive needs: No Hearing needs: No Vision needs: No Questionnaire Thrive Questionnaire Date Thrive assessed: 02/18/25 I am a: Patient What is your living situation today?: I have a steady place to live Within the past 12 months, did the food you bought not last and you didn't have the money to get more?: Never true Within the past 12 months, did you worry whether your food would run out before you got money to buy more?: Never true Do you have trouble paying for medicines?: No Do you have trouble getting transportation to medical appointments?: No Do you have trouble paying your heating and electricity bill?: No Do you have trouble taking care of your child, family member or friend?: No Do you have trouble with day-to-day activities such as bathing, preparing meals, shopping, managing finances, etc.?: No Are you currently unemployed and looking for a job?: No Are you interested in more education?: No Please select the resources that you would like help with: None Currently or been in a relationship where the following occur: No concerns reported THRIVE Score: 0 ARTEMIO-7 AMB Questionnaire ARTEMIO-7 Date ARTEMIO - 7 assessed: 02/18/25 Source: Developed by Drs. Jayjay Zambrano, Gela Choudhury, Stephan Pope and colleagues, with an educational deniz from [employer]. Physical exam (Primary Care) Vital Signs: Last Vital Signs Temp 98.8 F 08/27/25 13:16 Pulse 77 08/27/25 13:16 Resp 16 08/27/25 13:16 BP 104/60 08/27/25 13:16 Pulse Ox 96 08/27/25 13:16 Oxygen Delivery Method Room Air 08/27/25 13:16 BMI result Body Mass Index 27.9 Tobacco/Smoking Status: Tobacco use Status Tobacco use date assessed 08/27/25 08/27/25 13:20 Patient Tobacco Use Status Former Tobacco user 08/27/25 13:20 e-Cigarette/Vaping Use Never Used 08/27/25 13:20 Thrive Assessment: Date of Thrive Assessment Date Thrive assessed 02/18/25 08/27/25 13:20 Currently or been in a relationship where the following occur: No concerns reported Coding Level of Care Code Est Pt Level 3 (05552) Diagnoses Anemia D64.9 HTN (hypertension) I10 Vitamin D deficiency E55.9 Screening for colon cancer Z12. Assessment & Plan Assessment & Plan (1) Anemia: Code(s): D64.9 - Anemia, unspecified Category: Medical (2) HTN (hypertension): Code(s): I10 - Essential (primary) hypertension Category: Medical (3) Vitamin D deficiency: Code(s): E55.9 - Vitamin D deficiency, unspecified Category: Medical (4) Screening for colon cancer: Code(s): Z12.11 - Encounter for screening for malignant neoplasm of colon Category: Medical Plan . Orders: Orders Complete Blood Count Auto Diff Today D64.9 - Anemia, unspecified Lactate Dehydrogenase Today D64.9 - Anemia, unspecified Reticulocyte Count Today D64.9 - Anemia, unspecified Vitamin B12 and Folate Today D64.9 - Anemia, unspecified IRON PROFILE Today D64.9 - Anemia, unspecified Comprehensive Met. Panel Today D64.9 - Anemia, unspecified, E55.9 - Vitamin D deficiency, unspecified, I10 - Essential (primary) hypertension Ferritin Today D64.9 - Anemia, unspecified Vitamin D 25-OH Total Today E55.9 - Vitamin D deficiency, unspecified Referrals Gastroenterology Referral Z12.11 - Encounter for screening for malignant neoplasm of colon
== END 2025-08-27 14:14 | disposition home or self-care (01) ==
LOC: HO.HMCC 13:11
PROVIDERS: PCP Nurse Practitioner Family; Visit Provider Nurse Practitioner Family
DX: D64.9 Anemia, unspecified (principal); I10 Essential (primary) hypertension; E55.9 Vitamin D deficiency, unspecified; Z12.11 Encounter for screening for malignant neoplasm of colon